=== PATIENT | female | born 1940 | race Caucasian/White ===

== ENCOUNTER → 2018-08-06 | Outpatient (CLI) | payer MEDICARE ==
--- NOTE | 2018-08-06 12:18 | Diagnostic Imaging Report ---
Indications: Headache Technique: Spiral acquisitions obtained through the brain. Angled axial and coronal 5 x 5 mm slices were reconstructed. Total dose length product 1362.01 mGycm. CTDI vol(s) 70.38 mGy. Dose reduction achieved using automated exposure control Comparison: None. Findings: There is a slight degree of image degradation due to motion artifact. There is evidence of prior right posterior parietal craniotomy. Encephalomalacia underlies the craniotomy. There is suggestion of focal cortical encephalomalacia in the left inferior frontal lobe. There is also focal cortical encephalomalacia involving the anteromedial right frontal lobe. There is age-related enlargement of the ventricles and extra-axial CSF spaces. There is extensive periventricular deep white matter low-attenuation, consistent with chronic ischemic change. There is a cortical calcification in the left parasagittal frontal lobe No acute intracranial hemorrhage or edema. No mass effect nor midline shift. The remainder of the calvarium is intact. Visualized orbits and sinuses are unremarkable. 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
== END | disposition home or self-care (01) ==
LOC: RAD 09:49
DX: G91.9 Hydrocephalus, unspecified (principal); G93.89 Other specified disorders of brain
CPT/HCPCS: 70450